=== PATIENT | female | born 1975 | race Caucasian/White ===

== ENCOUNTER 2019-04-19 15:47 | Emergency (ER) | payer OTHER ==
[~2019-04-19] VITALS: Ht 170.2 cm; Wt 86.2 kg
[2019-04-19 15:54] VITALS: Ht 170.2 cm; Wt 86.2 kg
[2019-04-19 18:10] VITALS: BP 140/91
== END 2019-04-19 18:51 | disposition home or self-care (01) ==
LOC: ED 15:47
DX: S82.851A Displaced trimalleolar fracture of right lower leg, initial encounter for closed fracture (principal); W10.8XXA Fall (on) (from) other stairs and steps, initial encounter; Y93.89 Activity, other specified; Y92.89 Other specified places as the place of occurrence of the external cause; Y99.8 Other external cause status
CPT/HCPCS: J1885; J2270; Q0162